=== PATIENT | male | born 1930 | race Caucasian/White ===

== ENCOUNTER 2016-07-20 14:49 | Emergency (ER) | payer MEDICARE, OTHER ==
[~2016-07-20] VITALS: Ht 170.2 cm; Wt 81.6 kg
[2016-07-20 15:56] LABS: BASOPHILS # (AUTO) 0.1 K/uL (0.0-0.2); BASOPHILS % (AUTO) 1.2 % (0.0-2.0); EOSINOPHILS # (AUTO) 0.3 K/uL (0.0-0.7); EOSINOPHILS % (AUTO) 3.8 % (0.0-7.0); HEMOGLOBIN 12.7 g/dL (14.0-18.0); LYMPHOCYTES % (AUTO) 13.8 % (20.5-51.5); MEAN CORPUSCULAR HEMOGLOBIN 27.6 uug (27.0-31.0); MEAN CORPUSCULAR HGB CONC 33 % (32.0-37.0); MEAN CORPUSCULAR VOLUME 84.8 fL (82.0-92.0); MONOCYTES # (AUTO) 0.3 K/uL (0.1-1.30); NEUTROPHILS # (AUTO) 5.2 K/uL (1.8-8.9); NEUTROPHILS % (AUTO) 76.2 % (38.5-71.5); PLATELET COUNT (AUTO) 185 K/uL (150-450); RED CELL DISTRIBUTION WIDTH 18.2 % (11.5-14.5); WHITE BLOOD COUNT (AUTO) 6.9 K/uL (4.0-11.2)
[2016-07-20 15:59] LABS: CALCIUM 9.1 mg/dL (8.5-10.1); CREATININE 1.6 mg/dL (0.6-1.3); POTASSIUM 4.2 mmol/L (3.5-5.1)
[2016-07-20 16:04] LABS: ALBUMIN 2.8 g/dL (3.4-5.0); BILIRUBIN,DIRECT 0.1 mg/dL (0.0-0.2); BILIRUBIN,TOTAL 0.5 mg/dL (0.2-1.0); TOTAL PROTEIN, SERUM 6.2 g/dL (6.4-8.2)
[2016-07-20 16:45] LABS: ANISOCYTOSIS 2+
[2016-07-20 16:46] LABS: OVALOCYTES 1+
--- NOTE | 2016-07-20 16:50 | NUR ---
Patient discharged to home in stable conditon. Written and verbal after care instructions given. Patient verbalizes understanding of instructions.pt called for ride. pt says feels good and wants to go home.
[2016-07-20 16:51] VITALS: BP 121/87
== END 2016-07-20 16:52 | disposition home or self-care (01) ==
LOC: ER 14:52
DX: R04.0 Epistaxis (principal); R41.82 Altered mental status, unspecified; I10 Essential (primary) hypertension; Z95.818 Presence of other cardiac implants and grafts; Z88.6 Allergy status to analgesic agent
CPT/HCPCS: 36415; 70450; 80048; 80076; 84484; 85025; 85730; 99285; A4663; 70030-TC

== ENCOUNTER 2017-11-09 22:53 | Inpatient (IN) | payer MEDICARE, OTHER ==
[~2017-11-09] VITALS: Ht 167.6 cm; Wt 70.8 kg
[2017-11-09] MEDS ORDERED: CLOPIDOGREL 75 MG TABS (23:07)
[2017-11-09] MEDS ORDERED: ROSUVASTATIN CALCIUM 10 MG TAB (23:07)
[2017-11-09] MEDS ORDERED: EZETIMIBE 10 MG (23:07)
[2017-11-09] MEDS ORDERED: PREDNISONE 10 MG (23:07)
[2017-11-09] MEDS ORDERED: ESCITALOPRAM OXALATE 20 MG TAB (23:07)
[2017-11-09] MEDS ORDERED: FINASTERIDE 5 MG (23:07)
[2017-11-09] MEDS ORDERED: RANEXA 1000 MG (23:07)
[2017-11-09] MEDS ORDERED: CEFUROXIME AXETIL 500 MG (23:07)
[2017-11-09] MEDS ORDERED: LOSARTAN POTASSIUM 50 MG TABS (23:07)
[2017-11-09] MEDS ORDERED: CARVEDILOL 6.25 MG (23:07)
[2017-11-09] MEDS ORDERED: TRAZODONE HCL 50 MG TABS (23:07)
[2017-11-09] MEDS ORDERED: TRADJENTA 5 MG (23:07)
[2017-11-09] MEDS ORDERED: TAMSULOSIN HCL .4 MG CAPS (23:07)
--- NOTE | 2017-11-09 23:09 | NUR ---
DR VIRGINIA OCHOA MD AT [facility] FOR MSE. PT PLACED ON MONITOR, AND PULSE OX. EKG COMPLETED.
[2017-11-09] MEDS ORDERED: NITROGLYCERIN OINT 1 GM PACKET TP ONE ×2 (23:15→23:31)
--- NOTE | 2017-11-09 23:27 | NUR ---
LAB AT PT BEDSIDE FOR BLOOD DRAW.
[2017-11-09 23:56] LABS: BASOPHILS # (AUTO) 0.1 K/uL (0.0-8.0); BASOPHILS % (AUTO) 0.7 % (0.0-2.0); CARBON DIOXIDE 26 mmol/L (21-32); CHLORIDE 101 mmol/L (98-107); CREATININE 1.8 mg/dL (0.6-1.3); EOSINOPHILS # (AUTO) 0.1 K/uL (0.0-0.7); EOSINOPHILS % (AUTO) 0.7 % (0.0-7.0); GLUCOSE 143 mg/dL (74-106); HEMATOCRIT 37.4 % (36.7-47.1); HEMOGLOBIN 12.2 g/dL (12.5-16.3); LYMPHOCYTES # (AUTO) 1.1 K/uL (20.0-40.0); LYMPHOCYTES % (AUTO) 9.7 % (20.5-51.5); MEAN CORPUSCULAR HEMOGLOBIN 27.4 uug (23.8-33.4); MEAN CORPUSCULAR HGB CONC 33 g/dL (32.5-36.3); MEAN CORPUSCULAR VOLUME 83.9 fL (73.0-96.2); MONOCYTES # (AUTO) 0.4 K/uL (2.0-10.0); MONOCYTES % (AUTO) 3.6 % (0.0-11.0); NEUTROPHILS # (AUTO) 9.6 K/uL (1.8-8.9); NEUTROPHILS % (AUTO) 85.3 % (38.5-71.5); PLATELET COUNT (AUTO) 267 K/uL (152-348); POTASSIUM 4.7 mmol/L (3.5-5.1); RED BLOOD CELL COUNT(AUTO) 4.46 MIL/uL (4.06-5.63); UREA NITROGEN, BLOOD 35 mg/dL (7-18); WHITE BLOOD COUNT (AUTO) 11.2 K/uL (3.6-10.2)
--- NOTE | 2017-11-10 00:03 | NUR ---
XRAY AT PT BEDSIDE.
[2017-11-10 00:09] LABS: ALANINE AMINOTRANSFERASE 19 U/L (16-63); ALKALINE PHOSPHATASE 73 U/L (50-136); ASPARTATE AMINOTRANSFERASE 19 U/L (15-37); BILIRUBIN,DIRECT 0.2 mg/dL (0.0-0.2); BILIRUBIN,TOTAL 0.4 mg/dL (0.2-1.0); TOTAL PROTEIN, SERUM 6.5 g/dL (6.4-8.2)
[2017-11-10 02:08] LABS: LYMPHOCYTES % (MANUAL) 8 % (20-40); MONOCYTES % (MANUAL) 3 % (2-10); NEUTROPHILS % (MANUAL) 89 % (42-75)
--- NOTE | 2017-11-10 04:52 | NUR ---
REPORT GIVEN TO MALIK DO.
[2017-11-10] MEDS ORDERED: ZOLPIDEM 5 MG TABLET PO PRN (05:00)
[2017-11-10] MEDS ORDERED: ACETAMINOPHEN 325 MG TABLET PO PRN (05:00)
[2017-11-10] MEDS ORDERED: HYDROCODONE/APAP 5-325MG TABLET PO PRN (05:00)
[2017-11-10] MEDS ORDERED: ONDANSETRON 4 MG/2 ML VIAL IV PRN (05:00)
[2017-11-10] MEDS ORDERED: NITROGLYCERIN 0.4 MG/TAB BOTTLE SL PRN (05:00)
[2017-11-10] MEDS ORDERED: Z GUARD REMEDY PASTE 57 GM TUBE TOP PRN (05:00)
[2017-11-10] MEDS ORDERED: MAGNESIUM HYDROXIDE 30 ML LIQUID UDC PO PRN (05:00)
[2017-11-10] MEDS ORDERED: IV NS 1000 ML 1,000 ML IV PRN (05:00)
--- NOTE | 2017-11-10 05:02 | NUR ---
Pt. admitted to TELE, under care of ANDREA Belongs List completed
[2017-11-10 05:45] VITALS: BP 155/67
--- NOTE | 2017-11-10 05:45 | NUR ---
Received patient from ER via gurney. No acute distress noted. No c/o of pain or SOB. Patient was able to ambulate to the restroom and back to the bed. A/O x 3 but forgetful. TELE Sinus Jesse at 52. Vital signs taken and stable. O2 is at 95% on Room Air. Skin intact. IV on the right AC # 20. Noted bilateral ankle swelling. Safety initiated. Call light within reach. Will continue to monitor.
[2017-11-10] MEDS ORDERED: CARVEDILOL 6.25 MG TABLET PO SCH (08:00)
--- NOTE | 2017-11-10 08:00 | NUR ---
AWAKE ALERT AND ORIENTED X3 NO SS OF PAIN OR DISTRESS SR ON MONITOR
[2017-11-10 08:06] LABS: *BILIRUBIN,URIN NEGATIVE (NEGATIVE); *BLOOD, URINE NEGATIVE (NEGATIVE); *CLARITY,URINE CLEAR (CLEAR); *COLOR,URINE YELLOW (YELLOW); *KETONES,URINE NEGATIVE (NEGATIVE); *PROTEIN,URINE NEGATIVE (NEGATIVE); *UROBILINOGEN,URINE 0.2 E.U./dl (NORMAL); LEUKOCYTE ESTERASE ,URINE NEGATIVE (NEGATIVE); NITRITE, URINE NEGATIVE (NEGATIVE); UGLUCOSE NEGATIVE (NEGATIVE)
[2017-11-10 08:15] LABS: RBC,URINE 0-3 /HPF (0-3); WBC,URINE 0-3 /HPF (0-3)
[2017-11-10 08:16] LABS: BACTERIA,URINE NONE SEEN /HPF (NONE SEEN); MUCUS,URINE FEW /LPF (0-FEW); SQUAMOUS EPITHELIAL CELL,UR FEW /HPF (NONE SEEN)
[2017-11-10] MEDS ORDERED: ESCITALOPRAM OXALATE 10 MG TABLET PO SCH ×2 (09:00→21:00)
[2017-11-10] MEDS ORDERED: FINASTERIDE 5 MG TABLET PO SCH (09:00)
[2017-11-10] MEDS ORDERED: RANOLAZINE 500 MG TAB.ER.12H PO SCH (09:00)
[2017-11-10] MEDS ORDERED: LOSARTAN POTASSIUM 50 MG TABLET PO SCH (09:00)
[2017-11-10] MEDS ORDERED: LINAGLIPTIN 5 MG TABLET PO SCH (09:00)
[2017-11-10] MEDS ORDERED: CLOPIDOGREL 75 MG TABLET PO SCH (09:00)
[2017-11-10] MEDS ORDERED: predniSONE 10 MG TABLET PO SCH (09:00)
[2017-11-10 11:34] VITALS: BP 142/68
[2017-11-10 12:08] LABS: *BILIRUBIN,URIN NEGATIVE (NEGATIVE); *BLOOD, URINE NEGATIVE (NEGATIVE); *CLARITY,URINE CLEAR (CLEAR); *COLOR,URINE YELLOW (YELLOW); *KETONES,URINE NEGATIVE (NEGATIVE); *PROTEIN,URINE NEGATIVE (NEGATIVE); *UROBILINOGEN,URINE 0.2 E.U./dl (NORMAL); LEUKOCYTE ESTERASE ,URINE NEGATIVE (NEGATIVE); NITRITE, URINE NEGATIVE (NEGATIVE); UGLUCOSE NEGATIVE (NEGATIVE)
[2017-11-10 12:33] LABS: RBC,URINE 0-3 /HPF (0-3)
[2017-11-10 12:34] LABS: BACTERIA,URINE NONE SEEN /HPF (NONE SEEN); SQUAMOUS EPITHELIAL CELL,UR FEW /HPF (NONE SEEN); WBC,URINE 0-3 /HPF (0-3)
[2017-11-10 12:37] LABS: *CREATININE,URINE 45.2 mg/dL (30-125); *URINE TOTAL PROTEIN RANDOM 17.8 mg/dL (<150/24HR)
--- NOTE | 2017-11-10 13:00 | NUR ---
SEEN BY DR YORK FOR FOLLOW-UP SAID OK TO DISCHARGE AND FOLLOW-UP WITH [employer] D[employer] COLLECTOR AND PCP
--- NOTE | 2017-11-10 14:51 | NUR ---
DISCHARGED HOME STABLE ACCOMPANIED BY DAUGHTER VIA PRIVATE CAR STABLE
[2017-11-10] MEDS ORDERED: TAMSULOSIN HCL 0.4 MG CAP.SR.24H PO SCH (21:00)
[2017-11-10] MEDS ORDERED: EZETIMIBE 10 MG TABLET PO SCH (21:00)
[2017-11-10] MEDS ORDERED: ATORVASTATIN 10 MG TABLET PO SCH (21:00)
[2017-11-10] MEDS ORDERED: TRAZODONE 50 MG TABLET PO SCH (21:00)
== END 2017-11-10 15:00 | disposition home or self-care (01) | DRG 302 ==
LOC: ER 22:55 → TELE 11-10 03:50
PROVIDERS: ADMIT Nurse Practitioner Acute Care; ATTEND Internal Medicine
DX: I25.119 Atherosclerotic heart disease of native coronary artery with unspecified angina pectoris (principal); N17.0 Acute kidney failure with tubular necrosis; E11.22 Type 2 diabetes mellitus with diabetic chronic kidney disease; J44.9 Chronic obstructive pulmonary disease, unspecified; E78.5 Hyperlipidemia, unspecified; N18.9 Chronic kidney disease, unspecified; N40.0 Benign prostatic hyperplasia without lower urinary tract symptoms; Z85.46 Personal history of malignant neoplasm of prostate; Z79.84 Long term (current) use of oral hypoglycemic drugs; I12.9 Hypertensive chronic kidney disease with stage 1 through stage 4 chronic kidney disease, or unspecified chronic kidney disease; Z95.5 Presence of coronary angioplasty implant and graft; E11.21 Type 2 diabetes mellitus with diabetic nephropathy
CPT/HCPCS: 36415; 70030-TC; 71045; 83605; 84156; 84300; 85025; 85730; 87040; 93005; 93307; A4663; J7030; J7512

== ENCOUNTER 2019-04-08 09:54 | Emergency (ER) | payer MEDICARE, OTHER ==
[~2019-04-08] VITALS: Ht 170.2 cm; Wt 72.6 kg
[~2019-04-08 09:54] MED LIST: CARVEDILOL 6.25 MG; CEFUROXIME AXETIL 500 MG; CLOPIDOGREL 75 MG TABS; ESCITALOPRAM OXALATE 20 MG TAB; EZETIMIBE 10 MG; FINASTERIDE 5 MG; LOSARTAN POTASSIUM 50 MG TABS; PREDNISONE 10 MG; RANEXA 1000 MG; ROSUVASTATIN CALCIUM 10 MG TAB; TAMSULOSIN HCL .4 MG CAPS; TRADJENTA 5 MG; TRAZODONE HCL 50 MG TABS
--- NOTE | 2019-04-08 09:54 | NUR ---
Patient is alert, awake, Farsi-speaking only per RA 881, patient's respiration:easy, follows command, no visible injuries seen@back & both knees.
--- NOTE | 2019-04-08 09:55 | NUR ---
Charge & telecommunication operator Jude speaks fluent Farsi.
--- NOTE | 2019-04-08 10:11 | NUR ---
Patient is heard speaking in fluent [place] with our doctor & triage nurse@this time.
--- NOTE | 2019-04-08 10:18 | NUR ---
Patient refuses EKG@this time. notified.
--- NOTE | 2019-04-08 10:20 | NUR ---
Patient refused pain medcine as well.
--- NOTE | 2019-04-08 10:25 | NUR ---
Patient refused blood draw as well, notified.
--- NOTE | 2019-04-08 10:51 | NUR ---
Patient is back from x-ray department in same condition. Patient wants to pee. Urinal provided.
--- NOTE | 2019-04-08 11:07 | NUR ---
Patient is changing to his personal clothes from hospital gown with some assist, pending results and disposition.
[2019-04-08] MEDS ORDERED: ACETAMINOPHEN ES 500 MG TABLET ONE (11:26)
--- NOTE | 2019-04-08 11:28 | NUR ---
TAxi cab was called ([employer] weigher operator#9$). [id number]. Patient does not wish to proceed with medical care recommended by Dr. Henley. Patient given information related to possible complications, up to and including , which could occur as a result of leaving the hospital at this time. Patient verbalizes understanding of risks involved due to leaving against medical advice. Patient has signed AMA form. tuckpointer Sepi as [facility] physical therapy resident.
[2019-04-08] MEDS ORDERED: ACETAMINOPHEN ES 500 MG TABLET PO ONE (11:30)
== END 2019-04-08 11:30 | disposition left against medical advice (07) ==
LOC: ER 09:54
DX: S83.92XA Sprain of unspecified site of left knee, initial encounter (principal); S83.91XA Sprain of unspecified site of right knee, initial encounter; S33.5XXA Sprain of ligaments of lumbar spine, initial encounter; I50.22 Chronic systolic (congestive) heart failure; I11.0 Hypertensive heart disease with heart failure; Z88.5 Allergy status to narcotic agent; Z79.899 Other long term (current) drug therapy; W18.39XA Other fall on same level, initial encounter; Y93.89 Activity, other specified; Y92.89 Other specified places as the place of occurrence of the external cause; Y99.8 Other external cause status
CPT/HCPCS: 71045; 72170; A4663; A9150